=== PATIENT | female | born 1965 | race Caucasian/White ===

== ENCOUNTER → 2017-08-26 | Outpatient (CLI) | payer BC ==
[~2017-08-26] MED LIST: ORTHOTRICYCLINE PO
== END | disposition home or self-care (01) ==
LOC: C.LAB1850 15:50
PROVIDERS: ATTEND Obstetrics & Gynecology
DX: N95.1 Menopausal and female climacteric states (principal)

== ENCOUNTER → 2017-08-26 | Outpatient (CLI) | payer BC | END | disposition home or self-care (01) | LOC: C.PAPS 14:47 | PROVIDERS: ATTEND Obstetrics & Gynecology | DX: Z01.419 Encounter for gynecological examination (general) (routine) without abnormal findings (principal) ==

== ENCOUNTER → 2017-08-26 | Outpatient (CLI) | payer BC ==
--- NOTE | 2017-08-27 14:36 | MAMMOGRAPHY REPORT ---
BILATERAL DIGITAL SCREENING MAMMOGRAM TOMOSYNTHESIS WITH CAD: 08/26/2017 CLINICAL HISTORY: Routine screening. TECHNIQUE: Breast tomosynthesis in addition to standard 2D mammography was performed. Current study was also evaluated with a Computer Aided Detection (CAD) system. COMPARISON: Comparison is made to exams dated: 10/03/2010 mammogram - [facility] an d 08/17/2007. BREAST COMPOSITION: There are scattered areas of fibroglandular density in both breasts. FINDINGS: There is a lobulated 8 mm mass within the right 3:00 breast, for which ultrasound is recom mended for further evaluation. Additionally, there is a possible 11 mm mass seen within the right 12 :00 to 12:30 breast, which may be stable compared to the 2010 exam although ultrasound and possible a dditional spot compression tomosynthesis views are also recommended. The remainder of both breasts are not significantly changed, without suspicious masses, calcification s, or areas of architectural distortion noted. A few other small circumscribed masses within the rig ht breast are not significantly changed, including a small 6 mm circumscribed mass in the right infer ior breast which is stable compared to the 2010 exam. IMPRESSION: ACR BI-RADS CATEGORY 0: INCOMPLETE EVALUATION: NEED ADDITIONAL IMAGING EVALUATION Right breast masses, for which additional imaging evaluation is recommended. The patient will be keyur led to schedule an appointment. Approximately 10% of breast cancers are not detected with mammography. A negative mammographic report should not delay biopsy if a clinically suggestive mass is present. Zoraida Block M.D. ah/:08/26/2017 16:33:11 Booking Agent: Xander PERKINS(R)(M), [facility] letter sent: Addl Imaging 0 BI-RADS Code: ACR BI-RADS Category 0: Incomplete Evaluation: Need Additional Imaging Evaluation
== END | disposition home or self-care (01) ==
LOC: C.MAMM 14:58
PROVIDERS: ATTEND Obstetrics & Gynecology
DX: Z12.31 Encounter for screening mammogram for malignant neoplasm of breast (principal); N63.10 Unspecified lump in the right breast, unspecified quadrant

== ENCOUNTER → 2017-09-04 | Outpatient (CLI) | payer BC ==
--- NOTE | 2017-09-04 12:52 | MAMMOGRAPHY REPORT ---
UNILATERAL RIGHT DIGITAL DIAGNOSTIC MAMMOGRAM TOMOSYNTHESIS AND TARGETED RIGHT ULTRASOUND: 09/04/2017 CLINICAL HISTORY: Callback from screening mammogram for right breast asymmetries. TECHNIQUE: Breast tomosynthesis in addition to standard 2D mammography was performed. Spot compress ion right CC and MLO 2-D and tomosynthesis images were obtained. COMPARISON: Comparison is made to exams dated: 08/26/2017 mammogram and 10/03/2010 mammogram - [facility]. BREAST COMPOSITION: There are scattered areas of fibroglandular density in the right breast. FINDINGS: Spot compression views of the right breast demonstrate a round partially circumscribed and partially obscured 6 mm mass within the right medial breast at approximately 3 to 3:30. Additionall y, there is a 9 mm lobulated mass with obscured margins within the right central/12:30 breast; this i s likely stable compared to the 2011 exam on the 2-D CC views. A few other circumscribed benign-appe aring masses are seen on the additional views which are stable compared to the prior 2011 exam. Targeted ultrasound was performed of the area of the right breast masses seen mammographically. In t he right breast at 12:30, 2 cm from the nipple, there is a lobulated hypoechoic 11 x 5 x 7 mm mass. This corresponds with one of the mammographic masses which is likely stable compared to the 2011 exam . This is probably benign given the probable stability and likely represents a cyst cluster. In the right breast at 2:00 periareolar region, there is a circumscribed anechoic mass with a few thin inte rnal septations measuring 6 x 7 x 4 mm. This is probably benign and likely represents a cyst cluster , and is felt to correspond with the other mammographic mass. In the right breast at 3:30, 5 cm from the nipple, there is a circumscribed anechoic 5 x 3 x 4 mm mass with a thin internal septation. Thi s is consistent with a benign cyst and correlates with a mammographic mass which has been stable comp ared to the 2011 exam. IMPRESSION: ACR-BI-RADS CATEGORY 3: PROBABLY BENIGN, TARGETED ULTRASOUND ACR-BI-RADS CATEGORY 3: PRO BABLY BENIGN Hypoechoic 11 mm mass in the right breast at 12:30 and 7 mm mass in the right breast at 2:00 on ultra sound. These correspond with the mammographic masses and are probably benign and likely represent cy st clusters. Recommend follow-up diagnostic tomosynthesis mammograms and possible ultrasound of the right breast in 6 months to confirm stability. The patient has been verbally notified of the results. Approximately 10% of breast cancers are not detected with mammography. A negative mammographic report should not delay biopsy if a clinically suggestive mass is present. Zoraida Block M.D. ah/:09/04/2017 11:42:06 Warp Placer: Flory PERKINS(Gideon)(Christine), [facility] letter sent: Follow Up Recommended 3 BI-RADS Code: ACR-BI-RADS Category 3: Probably Benign Ultrasound BI-RADS: ACR-BI-RADS Category 3: Pr obably Benign
== END | disposition home or self-care (01) ==
LOC: C.MAMM 09:22
PROVIDERS: ATTEND Obstetrics & Gynecology
DX: N63.10 Unspecified lump in the right breast, unspecified quadrant (principal)

== ENCOUNTER 2019-09-14 05:35 | Inpatient (IN) ==
--- NOTE | 2019-09-05 16:14 | PAT Medication Instructions ---
Medication Instructions Date of Service September 05, 2019 Home Medications diclofenac sodium 75 mg PO BID docusate sodium 300 mg PO QAM ferrous sulfate [Iron (ferrous sulfate)] 325 mg PO QAM multivitamin 1 tab PO QAM methocarbamol 750 mg PO QID PRN ASK your surgeon for instructions diclofenac sodium 75 mg PO BID DO NOT take the morning of surgery docusate sodium 300 mg PO QAM ferrous sulfate [Iron (ferrous sulfate)] 325 mg PO QAM multivitamin 1 tab PO QAM methocarbamol 750 mg PO QID PRN Other Notes If you have any questions please call us at [phone] or [phone] or [phone] or [phone]
--- NOTE | 2019-09-08 13:50 | History and Physical Report ---
DATE OF ADMISSION: 09/14/2019 CHIEF COMPLAINT: Endometrial carcinoma. HISTORY OF PRESENT ILLNESS: The patient is a 53-year-old 2, para 2. She had tubal ligation for control in 2012. She had her gallbladder removed. She had her left knee replaced. She had a tummy tuck. She has no known drug allergies. She underwent menopause in 2016. Early in August 2019, she had a vaginal discharge, which was blood tinged. 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 She is presently being scheduled for total abdominal hysterectomy, bilateral salpingo-oophorectomy. PAST MEDICAL HISTORY: She has 2 children in good health. ALLERGIES: No drug allergies. PAST SURGICAL HISTORY: Tubal ligation, gallbladder, tummy tuck, left knee replacement and a D and C. MEDICAL HISTORY: She has got osteoarthritis. She is on methocarbamol and diclofenac. SOCIAL HISTORY: No smoking. No excessive alcohol intake. Worked as a teacher. FAMILY HISTORY: Mom at age 40 of drug overdose. Father at age 95 dementia. One brother, 4 sisters in good health. REVIEW OF SYSTEMS: HEAD: No symptoms of frequent or severe headaches. EYES: No symptoms of blurred vision, double vision. EARS: No symptoms of frequent ear infections. PHYSICAL EXAMINATION: GENERAL: Well-developed, well-nourished 53-year-old white female, alert, oriented x3 and cooperative, no acute distress, appear her stated age Conjunctivae are pink. Sclerae white, no evidence of jaundice. EARS: Had normal light reflex bilaterally. NOSE: Had normal mucosa. Septum is midline. There were no polyps. THROAT: No erythema or evidence of infection. Teeth are in good state of repair. HEAD: Normocephalic, normal distribution of hair. NECK: Supple. Trachea midline. Thyroid is not enlarged. There is no adenopathy appreciated. Both carotids are of good intensity. CHEST: Clear to auscultation and percussion. No wheezes, rales or rhonchi appreciated. HEART: Had regular rhythm. S1, S2 are normal. BREASTS: Normal. LUNGS: Clear. ABDOMEN: Soft and nontender. There was a large Pfannenstiel scar and a circular scar around the umbilicus. PELVIC: Revealed normal-appearing cervix. Uterus was top normal size. There were no adnexal masses appreciated. MUSCULOSKELETAL: She had a scar over the left knee. No calf tenderness. IMPRESSIONS OF THIS CASE: Status post cholecystectomy, status post left knee replacement, status post tummy tuck procedure, status post dilation and curettage and adenocarcinoma of the endometrium. VALENTINA
--- NOTE | 2019-09-08 14:06 | Anesthesiology Consultation ---
Date of Service September 08, 2019 Assessment & Plan (1) Encounter for pre-operative examination: - Cardiology: 08/09/19: In regards to D[place] ([place] [facility] [place] "Laurence is scheduled for a low cardiac risk procedure, She is active with good functional capacity greater than 4 METS, she is limited only by arthritis pain. She has no cardiac complaints. She has a history of a bicuspid aortic valve with mild aortic stenosis. Most recent echocardiogram was performed on 07.19.2018: Normal left ventricular size, wall thickness, wall motion and contractility with an ejection fraction of 60-65%, bicuspid aortic valve with mild stenosis. She has not symptoms of chest pain, shortness of breath, dizziness, near syncope or syncope. Repeat echocardiogram is not indicated based on asymptomatic status and is planned for next year, unless symptoms arise. The patient is stable and at optimal cardiac status presently to proceed with planned surgery." - Check test AM DOS Chart Review Chart Review: Acceptable Risk for Surgery and Patient seen in Pre Admission Testing Teaching & Discussion Pre-Anesthesia Teaching/Discussion Notes: Instructed NPO after midnight before surgery,except medications with 15 cc of water. Medication instructions provided according to the PAT guidelines. History Surgery Operation Date: 09/14/19 07:30 Proposed Procedures p Total Abdominal Hysterectomy, Bilateral Salpingo Oophorectomy - Eber Hodges MD Height/Weight Height: 5 ft 9 in Weight: 111 kg Allergies Allergy/AdvReac Type Severity Reaction Status Date / Time No Known Allergies Allergy Verified 09/05/19 12:06 Medications Home Medications Medication Instructions Recorded Confirmed Last Taken diclofenac sodium 75 mg PO BID 07/25/19 09/05/19 08/08/19 docusate sodium 300 mg PO QAM 07/25/19 09/05/19 08/08/19 ferrous sulfate [Iron (ferrous 325 mg PO QAM 07/25/19 09/05/19 08/08/19 sulfate)] multivitamin 1 tab PO QAM 07/25/19 09/05/19 08/08/19 methocarbamol 750 mg PO QID PRN 09/05/19 09/05/19 Unknown Past Medical History Medical History Bicuspid aortic valve mild stenosis (DAVID 1.5cm2, MG 15mmhg per 07/2018 ECHO) Cancer uterine (reason for surgery) Kidney stones hx Obesity Osteoarthritis Exercise / Class Metabolic Activity II 4-5 Yardwork/Stairs/Walk up hill Past Family History Family History Other No family history of adverse response to anesthesia Past Surgical History Surgical History History of arthroscopy of left knee x2 History of bilateral tubal ligation History of cholecystectomy History of colonoscopy History of dilatation and curettage D&C: [place] [facility] [place] of oral surgery "had pieces of bone put into jaw" History of tooth extraction History of total left knee replacement (TKR) Hx of thumb surgery PIN TO RIGHT THUMB Past Anesthesia History No Hx of Anesthesia Complications and No Family Hx of Anesthesia Complications History of PONV No Hx of PONV and Hx of Motion Sickness (rare (while reading in car)) Social History Smoking Status: Never smoker Do You Dip or Chew Tobacco: No Hx Alcohol Use: Yes Alcohol type: wine and hard liquor alcohol intake frequency: a few times a week Hx Substance Use: No substance use type: does not use Review of Systems Patient denies chest pain, shortness of breath, dyspnea on exertion, cough, wheezing, palpitations. Physical Exam Vital Signs VITALS BP 123/85 P 59 TEMP 97.5 SP02 98%RA RESP 20 PHYSICAL Full neck and c-spine range of motion. Full TMJ range of motion. TMD 3.5 finger breaths Mallampati Score 2 Dentition: missing molars, several caps several on the molars Lungs: clear throughout to auscultation Cardiac: regular rate and rhythm, III/ systolic murmur Spine: normal Carotid arteries: negative bruit Extremities: no edema Testing Laboratory Results 09/08/19 14:27 09/08/19 14:27 PT 10.3 Seconds (9.0-12.0) 09/08/19 14:27 INR 1.0 (0.9-1.1) 09/08/19 14:27 APTT 26.6 Seconds (21.0-31.0) 09/08/19 14:27 Blood Type A Positive 09/08/19 14:27 Antibody Screen NEGATIVE 09/08/19 14:27 Electrocardiogram Date: 09/08/19 SB at 56bpm. Echocardiogram Date: 07/19/18 EF 60-65%. No RWMA. Bicuspid AV. MG 15mmhg. DAVID 1.5cm2. Mild TR. RVSP 36mmhg.
[2019-09-08 14:53] LABS: Basophils # (auto) 0.01 K/uL (0-0.2); Basophils % (auto) 0.2 %; Eosinophils # (auto) 0.12 K/uL (0-0.5); Eosinophils % (auto) 2.5 %; Hematocrit (blood only) 39.2 % (37-47); Hemoglobin 12.7 g/dL (12.0-16.0); Immature Granulocytes # (auto) 0.01 K/uL (0.00-0.02); Immature Granulocytes % (auto) 0.2 %; Lymphocytes # (auto) 1.65 K/uL (1.2-3.4); Lymphocytes % (auto) 34.7 %; Mean Corpuscular Hemoglobin 27.7 pg (25-34); Mean Corpuscular Hgb Conc 32.4 g/dL (32-36); Mean Corpuscular Volume 85.4 fL (80-100); Mean Platelet Volume 9.7 fL (7.4-10.4); Monocytes # (auto) 0.29 K/uL (0.11-0.59); Monocytes % (auto) 6.1 %; Neutrophils # (auto) 2.67 K/uL (1.4-6.5); Neutrophils % (auto) 56.3 %; Platelet Count 211 K/uL (130-400); RDW Coefficient of Variation 14.5 % (11.5-14.5); Red Blood Count 4.59 M/uL (4.2-5.4); White Blood Count 4.75 K/uL (4.8-10.8)
[2019-09-08 15:06] LABS: Partial Thromboplastin Time 26.6 Seconds (21.0-31.0); Prothrombin Time 10.3 Seconds (9.0-12.0)
[2019-09-08 16:12] LABS: Calcium 9.4 mg/dl (8.5-10.1); Creatinine Clr Calc Pharmacy 105.4 ml/min; Est GFR (African American) 95.4; Est GFR (Non-African American) 82.3; Potassium 4.9 mmol/L (3.5-5.1)
--- NOTE | 2019-09-09 08:16 | Electrocardiogram Report ---
Test Reason : Blood Pressure : / mmHG Vent. Rate : 056 BPM Atrial Rate : 056 BPM P-R Int : 186 ms QRS Dur : 092 ms QT Int : 428 ms P-R-T Axes : -24 070 014 degrees QTc Int : 413 ms Sinus bradycardia Abnormal ECG When compared with ECG of 26-JUL-2019 15:19, T wave inversion no longer evident in Inferior leads Confirmed by Emeka Mcneil ([id number]) on 09/08/2019 5:53:44 PM Referred By: Eber Hodges Confirmed By:Navarro Mcneil
[2019-09-14] MEDS ORDERED: cefOXitin 2,000 MG in DEXTROSE 5% 50 ML IV SCH (06:00)
[2019-09-14] MEDS ORDERED: LR 15ML/HR IV SCH (06:00)
[2019-09-14] MEDS ORDERED: HEPARIN SOD (PORCINE) 5,000 UNITS/ML VIAL ONE (07:07)
--- NOTE | 2019-09-14 07:08 | History & Physical Bridge Note ---
Date of Service September 14, 2019 History & Physical Bridge Note I have examined the patient, reviewed the History & Physical and in the interval since the performance of the History & Physical I have noted the following changes of clinical significance: no changes noted
[2019-09-14] MEDS ORDERED: PROPOFOL IV EMULSION 10 MG/ML 20 ML VIAL IV ONE (07:09)
[2019-09-14] MEDS ORDERED: NEOSTIGMINE METHYLSULFATE 5 MG/5 ML SYR ONE (07:09)
[2019-09-14] MEDS ORDERED: fentaNYL citrate 100 MCG/2 ML VIAL ONE ×5 (07:09→10:58)
[2019-09-14] MEDS ORDERED: ONDANSETRON INJ 2 MG/ML 2 ML VIAL ONE ×2 (07:09→09:34)
[2019-09-14] MEDS ORDERED: MIDAZOLAM HCL 1 MG/ML 2ML VIAL ONE ×2 (07:09→07:27)
[2019-09-14] MEDS ORDERED: LIDOCAINE HCL 2% 2 ML VIAL/AMP(20MG/ML) INFIL ONE (07:09)
[2019-09-14] MEDS ORDERED: DEXAMETHASONE SOD INJ 4 MG/ML VIAL ONE (07:09)
[2019-09-14] MEDS ORDERED: GLYCOPYRROLATE 0.2 MG/ML VIAL ONE ×2 (07:09→09:34)
[2019-09-14] MEDS ORDERED: MoRPHine SULFATE PF 1 MG/ML 10 ML AMP/VIAL ONE (07:12)
[2019-09-14] MEDS ORDERED: MEPERIDINE HCL 25 MG/ML CARP IV PRN (07:45)
[2019-09-14] MEDS ORDERED: MoRPHine SULFATE PF 1 MG/ML 10 ML AMP/VIAL INT SPINAL ONE (07:45)
[2019-09-14] MEDS ORDERED: NALOXONE HCL 0.4 MG/1 ML VIAL/CARP IV PRN (07:45)
[2019-09-14] MEDS ORDERED: NALOXONE HCL 1 MG in SODIUM CHLORIDE 0.9% 1000ML 1,000 ML IV PRN (07:45)
[2019-09-14] MEDS ORDERED: DiphenhydrAMINE HCL 50 MG/ML VIAL IV PRN (07:45)
[2019-09-14] MEDS ORDERED: ePHEDrine sulfate 50 MG/ML AMP IV PRN (07:45)
[2019-09-14] MEDS ORDERED: NO NARCOTICS OR SEDATIVES SCH (07:45)
[2019-09-14] MEDS ORDERED: NALOXONE HCL 0.08 MG in SYRINGE 1.8 ML IV PRN (07:45)
[2019-09-14] MEDS ORDERED: NALBUPHINE HCL INJ 10 MG/ML AMP IV PRN (07:45)
[2019-09-14] MEDS ORDERED: SODIUM CHLORIDE 0.9% 1000ML 1,000 ML IV SCH (07:45)
[2019-09-14] MEDS ORDERED: DC INTRASPINAL MORPHINE SCH (07:45)
[2019-09-14] MEDS ORDERED: LACTATED RINGER'S 500 ML IV PRN (07:45)
[2019-09-14] MEDS ORDERED: ONDANSETRON INJ 2 MG/ML 2 ML VIAL IV PRN ×2 (07:45→10:11)
[2019-09-14] MEDS ORDERED: LARYING-O-JET KIT (LTA) ONE (08:07)
[2019-09-14] MEDS ORDERED: ePHEDrine sulfate 50 MG/ML SYR ONE (08:17)
[2019-09-14] MEDS ORDERED: ROCURONIUM BROMIDE 10 MG/ML 5 ML VIAL ONE (09:35)
[2019-09-14] MEDS ORDERED: SENNA 8.6 MG TAB PO PRN (10:11)
[2019-09-14] MEDS ORDERED: MAGNESIUM HYDROXIDE SUSP 30 ML UDC PO PRN (10:11)
[2019-09-14] MEDS ORDERED: bisacodyL 10 MG SUPP PR PRN (10:11)
--- NOTE | 2019-09-14 10:11 | Post Operative Brief Note ---
Immediate Post Op Note v1 Date of Surgery September 14, 2019 Pre & Post Diagnosis Operation Date: 09/14/19 07:15 Pre-Op Diagnosis: Endometrial Cancer In-Situ Post-Op Diagnosis: Endometrial Cancer In-Situ I identified the patient and participated in the time-out.: Yes Procedure Operation Date: 09/14/19 07:15 Actual Procedures p Total Abdominal Hysterectomy, Bilateral Salpingo Oophorectomy(Bilateral) - Eber Hodges MD obliteration of cul de sac Surgeon Eber Hodges MD Mail Truck Driver DR Lloyd Estimated Blood Loss 100 Findings Consistent with Post-Op Diagnosis Fluids 1200 ml Drains Myrick Catheter and Vandana Drain (vandana drain with saftey pin vaginal cuff) Anesthesia Type General Regional Complications none Disposition Accompanied Patient To Recovery: No Disposition: Recovery Room
[2019-09-14] MEDS: KETOROLAC 30 MG/ML VIAL IV PRN ×2 (10:44→18:03)
[2019-09-14] MEDS: fentaNYL citrate 100 MCG/2 ML VIAL IV PRN ×3 (10:50→11:07)
[2019-09-14] MEDS ORDERED: ACETAMINOPHEN 1000 MG/100 ML IV IV ONE (11:04)
--- NOTE | 2019-09-14 11:42 | Operative Report ---
DATE OF OPERATION: 09/14/2019 PROCEDURE: Total abdominal hysterectomy, bilateral salpingo-oophorectomy and obliteration of the cul-de-sac. PREOPERATIVE DIAGNOSIS: Adenocarcinoma of the endometrium in situ. POSTOPERATIVE DIAGNOSIS: Adenocarcinoma of the endometrium in situ, pathology pending. SURGEON: Puneet Hodges MD RUBBER CALENDER HELPER: Ron Lloyd MD ESTIMATED BLOOD LOSS: 100 mL. ANESTHESIA: General with spinal narcotics. OPERATIVE FINDINGS AND PROCEDURE: The patient was brought to the OR table, correctly identified by armband and conversation. Spinal narcotics were administered. Perineum and vagina were painted with Betadine paint. Myrick catheter was inserted aseptically into the bladder, connected to gravity drainage. Compression stockings were applied. Lower abdomen was painted with an alcohol based sterilizing solution. Following this, a Pfannenstiel incision was made through a previous scar, was carried down to the anterior fascia by sharp dissection. Hemostasis was secured by electrocauterization. Fascia was incised transversely from the underlying muscle by blunt and sharp dissection. Recti muscles were in the midline exposing the peritoneum which was carefully raised and entered. Then, an O'Thang-OConstance self-retraining retractor was inserted into the abdominal incision and about 6 moist laparotomy packs were used to retract the intestines and provide adequate exposure of pelvic cavity. What was seen at this time was a normal appearing uterus and ovaries. The blood supply to the ovaries on either side was isolated and doubly ligated with a chromic gut suture. The round ligaments were isolated, doubly ligated with a chromic gut suture on either side. Round ligaments were then clamped close to the uterus with the Brenda, cut distally. An incision was made above the vesicouterine fold. The bladder was undermined bluntly and pushed out of the operative field. Then, the posterior leaf of the broad ligament was punched through bluntly on each side and the ovaries were cut free from the attachments to the lateral pelvic wall and the area was grasped with a Brenda and then sutured with a silk tie. Following this, uterine vessels were skeletonized on each side, doubly ligated with a curved Tarun, cut and then doubly ligated with a chromic gut suture. The stumps were cauterized. Then, the cardinal ligament was cut from the cervix by sliding off the cervix after advancing the bladder out of the operative field, cutting with a stump and then ligating with a chromic gut suture. This was done 3 bites because of the length of the cardinal ligament. The cervix was then shelled out with electrocauterization. The angles of the vaginal cuff were suture ligated to the stumps of the cardinal ligaments on each angle. The suture going through the vaginal mucosa. Then, the edges of the vaginal cuff were sutured with a [id number] suture of chromic catgut with the lateral portion of the suture anchored in the cardinal ligament. The mid portion of the vagina was whipstitched open and following this, hemostasis was good. We did do an additional closure by approximating the anterior and posterior vagina on the patient's right side. The Sealevel drain with a safety pin was placed into the vagina. The end into the cul-de-sac. The posterior vaginal cuff was grasped with a cuff clamp. The uterosacrals on either side were identified and then a dperyt-pu-ajtay suture was used to obliterate the cul-de-sac running from the insertion of the uterosacral ligament on the cuff from the left side, pursestring the peritoneum, getting the uterosacral on the right side, then going back to the uterosacral ligament on the left side and pursestring the peritoneum to the stump; however, the insertion of the uterosacral ligament on the patient's right side and then tied with [id number] suture of Vicryl which added a lot of additional support for the vaginal cuff and obliterated the cul-de-sac. The round ligament around the right side was brought down, tied into the cuff. Then, the peritoneal edges were restored with a continuous running chromic gut suture. The pelvis was cleansed of all blood clots and debris. All packs removed. Pack count was normal. A careful anatomical approximation of the anterior abdominal wall was performed. Peritoneum was closed with a mattress suture of chromic catgut. Recti muscles were approximated with interrupted nbzgbw-tz-[id number] suture of chromic catgut. The fascia was closed with continuous interlocking suture of Vicryl on each side, tied in the midline. SubQ was approximated with a running deep and then a subcuticular plain and then the skin edges were approximated with a running subQ Vicryl and Steri-Strips. Urine was clear at the end of the procedure. Patient tolerated the procedure well. I attest to the content of the Intraoperative Record and any orders documented therein. Any exceptions are noted below. GILLIAND
--- NOTE | 2019-09-14 12:02 | Anesthesiology Progress Note ---
Date of Service September 14, 2019 Anesthesia Post Procedure Vital Signs Vital Signs: Temp Pulse Pulse Resp BP BP Pulse Ox 09/14/19 11:30 97.3 F L 68 22 114/72 99 09/14/19 11:20 65 20 113/71 100 09/14/19 11:10 48 L 12 102/71 94 09/14/19 11:00 61 20 117/78 100 09/14/19 10:50 62 12 123/80 99 09/14/19 10:40 60 15 131/81 100 09/14/19 10:30 73 13 129/85 100 09/14/19 10:20 73 13 126/84 100 09/14/19 10:12 98.6 F 77 16 133/84 100 09/14/19 05:50 97.5 F L 54 L 18 137/94 100 Pain Intensity Abdomen: Pain Intensity: 5 Transfer of Care Handoff Completed per policy Notes Mental Status: alert / awake / arousable and participated in evaluation Patient Amnestic to Procedure: Yes Nausea / Vomiting: adequately controlled Pain: adequately controlled Airway Patency, RR, SpO2: stable & adequate BP & HR: stable & adequate Hydration State: stable & adequate Anesthetic Complications: no major complications apparent and Pt Satisfied with anesthetic care
[2019-09-14] MEDS: D5W AND LACTATED RINGERS 1,000 ML IV SCH ×2 (19:01)
[2019-09-15] MEDS: KETOROLAC 30 MG/ML VIAL IV PRN (01:37)
[2019-09-15] MEDS ORDERED: KETOROLAC 30 MG/ML VIAL IV PRN (01:45)
[2019-09-15] MEDS ORDERED: MEPERIDINE HCL 50 MG/ML CARP IV PRN (01:45)
[2019-09-15] MEDS: D5W AND LACTATED RINGERS 1,000 ML IV SCH (07:30)
[2019-09-15] MEDS: IBUPROFEN 600 MG TAB PO PRN ×4 (08:58→23:22)
[2019-09-15] MEDS: MULTIVITAMIN TAB PO SCH (08:58)
[2019-09-15] MEDS: OXYCODONE/ACETAMINOPHEN 5mg/325mg TAB PO PRN ×4 (08:59→23:22)
--- NOTE | 2019-09-15 12:37 | Obstetrical Progress Note ---
Date of Service September 15, 2019 Physical Exam Physical Exam: abdomen soft and non tender bowel sounds are normal incision is clean and dry bandage removed vaginal bleeding scant ambulating well no calf tenderness Results & Data Vital Signs (Past 12 Hours) Vital Signs Temp Pulse Pulse Resp BP Pulse Ox Pulse Ox 09/15/19 12:00 36.5 C 64 18 116/76 100 09/15/19 07:31 36.7 C 71 18 109/66 100 09/15/19 04:15 36.5 C 70 16 103/60 98 98 09/15/19 01:45 20 96 09/15/19 01:00 20 96 09/15/19 00:45 36.6 C 61 61 20 103/62 96
[2019-09-15 14:01] LABS: Hematocrit (blood only) 30.6 % (37-47); Hemoglobin 10.1 g/dL (12.0-16.0)
[2019-09-16] MEDS: OXYCODONE/ACETAMINOPHEN 5mg/325mg TAB PO PRN ×2 (05:47→09:54)
[2019-09-16] MEDS: IBUPROFEN 600 MG TAB PO PRN ×2 (05:47→09:52)
--- NOTE | 2019-09-16 09:11 | Obstetrical Progress Note ---
Date of Service September 16, 2019 Physical Exam Physical Exam: abdomen soft and non tender incision is clean and dry passing flatus vaginal drain with safety pin removed no calf tenderness ambulating well vaginal bleeding scant hgb 10.1 Results & Data Vital Signs (Past 12 Hours) Vital Signs Temp Pulse Resp BP Pulse Ox Pulse Ox 09/16/19 07:32 36.4 C L 85 18 114/73 98 09/15/19 23:40 36.5 C 73 18 126/74 98 98
--- NOTE | 2019-09-16 09:23 | Discharge Summary ---
Mrs. Roe was admitted for total abdominal hysterectomy, bilateral salpingo-oophorectomy after having been diagnosed with endometrial carcinoma in situ on a previous D and C. At that time, she had presented with some mild postmenopausal bleeding. On the day of admission, she was taken to the OR where she underwent total abdominal hysterectomy, bilateral salpingo-oophorectomy and suspension of the vaginal cuff along with partial obliteration of the cul-de-sac. Postoperatively, she did well. She remained afebrile, Arline drain was removed on the second postoperative day. At the time of discharge, she was ambulating well, eating well, passing flatus. Pain was well controlled with a combination of Percocet and Motrin. Preoperative hemoglobin was 12.7, hematocrit 39.2; postoperatively hemoglobin was 10.1, hematocrit 30.6.
[2019-09-16] MEDS: MULTIVITAMIN TAB PO SCH (09:30)
== END 2019-09-16 10:05 | disposition home or self-care (01) | DRG 741 ==
LOC: ASU 05:35 → 4N 10:11
DX: C54.1 Malignant neoplasm of endometrium